=== PATIENT | female | born 1970 | race Caucasian/White ===

== ENCOUNTER 2017-05-08 19:43 | Inpatient (IN) | payer OTHER ==
[~2017-05-08] VITALS: Ht 165.1 cm; Wt 117.9 kg
[~2017-05-08 19:43] MED LIST: NABUMETONE500 MG PO; PERCOCET 5/3251 TAB PO
[2017-05-26] MEDS ORDERED: ASA81 MG PO (09:22)
[2017-05-26] MEDS ORDERED: PROTONIX40 MG PO (09:22)
[2017-05-26] MEDS ORDERED: TOPROL XL100 MG PO (09:23)
[2017-05-26] MEDS ORDERED: AVAPRO150 MG PO (09:23)
[2017-06-01] MEDS ORDERED: CALTRATE 600+D1 EAC1 PO (13:41)
[2017-06-01] MEDS ORDERED: OMEGA 3 1,0001 EACH PO (13:42)
== END 2017-06-02 13:51 | DRG 470 ==
LOC: SURG 05-31 07:00 → O/R 05-31 09:30 → PED 05-31 09:30 → SURH 05-31 09:30 → PED 05-31 20:42 → SURH 06-01 14:06
PROVIDERS: Orthopaedic Surgery
PROC: 0SRD0J9 Replacement of Left Knee Joint with Synthetic Substitute, Cemented, Open Approach (ICD-10-PCS; principal; 2017-05-31 07:00)
DX: M17.12 Unilateral primary osteoarthritis, left knee (principal); D62 Acute posthemorrhagic anemia; I10 Essential (primary) hypertension; G43.809 Other migraine, not intractable, without status migrainosus